=== PATIENT | male | born 1960 | race Two or more races ===

== ENCOUNTER 2018-02-26 18:37 | Emergency (ER) | payer MEDICAID, OTHER ==
[2018-02-26] MEDS ORDERED: MORPHINE SULFATE INJ 2 MG/ML DISP.SYRIN IM ONE (19:30)
[2018-02-26] MEDS ORDERED: ONDANSETRON 4 MG TAB.RAPDIS PO ONE (19:30)
[2018-02-26] MEDS ORDERED: MORPHINE SULFATE INJ 4 MG/ML DISP.SYRIN ONE (19:38)
[2018-02-26] MEDS ORDERED: ONDANSETRON 4 MG TAB.RAPDIS ONE (19:38)
== END 2018-02-26 20:00 | disposition home or self-care (01) ==
DX: S33.5XXA Sprain of ligaments of lumbar spine, initial encounter (principal); E78.5 Hyperlipidemia, unspecified; X58.XXXA Exposure to other specified factors, initial encounter; Y93.89 Activity, other specified; Y92.89 Other specified places as the place of occurrence of the external cause; Y99.8 Other external cause status